=== PATIENT | male | born 1975 | race Caucasian/White ===

== ENCOUNTER 2021-06-26 20:55 | Emergency (ER) | payer OTHER ==
[~2021-06-26] VITALS: Ht 180.3 cm; Wt 86.2 kg
[2021-06-26] MEDS ORDERED: LOSARTAN POTAS100 MG PO (21:05)
[2021-06-26] MEDS ORDERED: HYDROCHLORIC AC25 ML MC (21:05)
[2021-06-26] MEDS ORDERED: ATIVAN0.5 M1 PO (21:11)
[2021-06-26] MEDS ORDERED: ZOLOFT100 MG PO (21:11)
[2021-06-26] MEDS ORDERED: RESTORIL30 M1 PO (21:11)
== END 2021-06-26 21:57 | disposition home or self-care (01) ==
LOC: ER 20:55
DX: F41.9 Anxiety disorder, unspecified (principal); I10 Essential (primary) hypertension